=== PATIENT | female | born 1990 | race Caucasian/White ===

== ENCOUNTER 2024-10-25 00:51 | Emergency (ER) | payer OTHER ==
[~2024-10-25] VITALS: Ht 167.6 cm; Wt 127.0 kg
== END 2024-10-25 04:32 | disposition left against medical advice (07) ==
LOC: ER 00:51
DX: K92.1 Melena (principal); K62.89 Other specified diseases of anus and rectum; Z53.21 Procedure and treatment not carried out due to patient leaving prior to being seen by health care provider